=== PATIENT | male | born 1975 ===

== ENCOUNTER 2017-01-07 12:46 | Inpatient (IN) | payer OTHER ==
[2017-01-07] MEDS ORDERED: PROCHLORPERAZINE INJ 5 MG/ML 2 ML VIAL IV PRN (14:22)
[2017-01-07] MEDS ORDERED: Acetaminophen TAB* 325 MG PO PRN (14:22)
[2017-01-07] MEDS ORDERED: Morphine INJ* 2 MG/ML 1 ML SYRINGE IV PRN (14:22)
[2017-01-07] MEDS ORDERED: Nitroglycerin TAB 0.4 MG* 0.4 MG TAB SL PRN (14:23)
[2017-01-07 14:43] LABS: Hematocrit 48 % (42-52); Hemoglobin 16.1 g/dl (14.0-18.0); Mean Corpuscular HGB Conc 34 g/dl (31-36); Mean Corpuscular Hemoglobin 31 pg (27-31); Mean Corpuscular Volume 92 fL (80-94); Mean Platelet Volume 10 um3 (7.4-10.4); Red Blood Count 5.22 10^6/ul (4.0-5.4); Red Cell Distribution Width 13 % (10.5-15); White Blood Count 9.2 10^3/ul (3.5-10.8)
[2017-01-07] MEDS ORDERED: Enoxaparin(*) 40 MG/0.4 ML SYR SUBCUT SCH (15:00)
[2017-01-07 15:19] LABS: Albumin 4.2 g/dL (3.2-5.2); BUN/Creatinine Ratio 14.3 (8-20); Calcium 9.4 mg/dL (8.6-10.3); EGFR African American 128.9 (>60); EGFR Non-African American 100.2 (>60); Globulin 3.1 g/dL (2-4); Potassium 4.1 mmol/L (3.5-5.0); Total Protein 7.3 g/dL (6.4-8.9)
[2017-01-07] MEDS ORDERED: Enoxaparin(*) 80 MG/0.8 ML SYR SUBCUT ONE (15:32)
[2017-01-07] MEDS ORDERED: Clopidogrel TAB* 300 MG PO ONE (15:33)
--- NOTE | 2017-01-07 15:49 | PN ---
Hospitalist Progress Note HOSPITALIST ADDENDUM Patient remains comfortable, chest pain free, with no complaints. Troponin went up to 0.54. A/P: ACS - Will transfer to ICU. - D/w Cardiology - continue Aspirin, load with Plavix, add Lovenox, metoprolol, and atorvastatin. - Plan for cardiac cath in AM. - Patient updated at bedside and in agreement.
[2017-01-07] MEDS: Metoprolol Tartrate TAB* 25 MG PO SCH ×2 (15:51→21:15)
[2017-01-07] MEDS: Atorvastatin* 80 MG TAB PO SCH (15:51)
[2017-01-07 16:33] LABS: Magnesium 2.2 mg/dL (1.9-2.7)
--- NOTE | 2017-01-07 22:32 | HP ---
CC: Dr. Moya * HISTORY AND PHYSICAL: DATE OF ADMISSION: 01/07/17 TIME OF EVALUATION: 2 p.m. PRIMARY CARE PROVIDER: Dr. Moya. CHIEF COMPLAINT: Chest pain. HISTORY OF PRESENT ILLNESS: Mr. West is a 41-year-old male with a past medical history of tobacco abuse, who presented to the emergency room at [facility] with complaints of chest pain. 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 He states that he worked for an hour and a hour and a half period of vigorous physical activity and he stopped it and a few minutes later, he started to have chest pain that he describes as diffuse chest pain going from one shoulder to the other, burning in nature, 8/10 intensity. He went to his truck, sat, left the air conditioner on, but he states he was sweating profusely and the pain was not getting better , so he decided to go to the emergency room at [facility] [facility]. He received an aspirin and Toradol for pain with no relief and later on, he received nitroglycerin and he felt like the pain almost disappeared after that. He states the pain was not associated with palpitations, shortness of breath, cough, nausea, or vomiting. He is very active. 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 At [facility], his EKG showed no acute ischemic changes, but his first troponin is slightly elevated at 0.024 (limit 0.02). His minimally elevated troponin, the nature of his pain and the fact that it improved with nitroglycerin was concerning, so we were contacted for transfer as it was felt the patient would need further cardiac workup. The patient has been a smoker, a pack a day, since his early 20s. He states that when he goes for regular appointments with his PCP, they usually tell him that his blood pressure is elevated, but he states that a treatment was never recommended. He states that in the past he had high cholesterol and was on medication, but then later on, this was discontinued and he is not aware of his cholesterol levels at this point. Since , the patient has made multiple car trips to [place], [address], but he denies any leg swelling or leg pain. PAST MEDICAL HISTORY: 1. Possible hypertension and hyperlipidemia as described above. 2. Tobacco abuse. PAST SURGICAL HISTORY: Status post lumbar spine diskectomy for herniated disk 7 years ago. MEDICATION LIST: None. ALLERGIES: No allergies to medication, only to BEE VENOM (the patient experienced facial swelling). FAMILY HISTORY: The patient's father has a history of hypertension. He states the paternal grandfather in his 50s of heart disease, but he thinks it was related to rheumatic fever. As far as he knows, he has no family history of coronary artery disease. SOCIAL HISTORY: The patient is a smoker, 1 pack a day, since his early 20s. He drinks 1 to 2 doses of rum a week, last drink was last night. He denies any drug use. 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 Surrogate decision maker is the patient's father, Venkat West, phone number is [phone]. REVIEW OF SYSTEMS: A 14-point review of systems was performed and all the pertinent negative and positive findings are in the HPI. PHYSICAL EXAMINATION GENERAL: The patient is a pleasant middle-aged male, sitting up in bed, in no acute distress. VITAL SIGNS: Temperature is 97.8, heart rate is 63, respiratory rate is 16, oxygen saturation is 100% on room air, blood pressure is 156/98. HEENT: Pupils are equal. Moist mucous membranes. CHEST: Breath sounds present bilaterally with no added sounds. CVS: Normal S1, S2. Regular rate and rhythm. ABDOMEN: Soft, nontender, nondistended. Bowel sounds are present. EXTREMITIES: No edema. No calf tenderness. NEUROLOGIC: He is alert, awake, oriented x3. Able to move all 4 extremities. DIAGNOSTIC STUDIES/LAB DATA: At [facility], the patient had a chemistry that showed a sodium of 138, potassium of 4.0, chloride of 101, bicarb of 28, anion gap of 13, BUN of 11, creatinine of 1.0, glucose of 110, calcium of 9.2, magnesium 2. Total bilirubin 1.1, AST 25, ALT 35, alk phos 86. CPK was slightly elevated at 232 (upper limits 223). Troponin was 0.024. INR was 1.05. CBC showed a WBC of 7.2, hemoglobin of 16.4, hematocrit of 48, platelets of 238,000 with 64% neutrophils. Chest x-ray was reviewed, image CD sent and it shows no acute cardiopulmonary disease. The official report from [facility] is that the lung tan appear clear. The cardiac silhouette is within normal limits. There is no acute disease seen. EKG done at [facility] on 01/07/17 at 11:07 a.m. showed sinus rhythm with no ST-T changes. A repeat EKG was done at [facility] at 2:21 p.m. and it showed sinus rhythm at 64 beats per minute with flat T's in III and aVF, but no ST-T changes, no ST elevations. ASSESSMENT AND PLAN: Mr. West is a 41-year-old male with a past medical history of tobacco abuse, possible history of hypertension, hyperlipidemia that presented to [facility] with episode of chest pain after significant physical exertion associated with diaphoresis and relieved by nitroglycerin. 1. Chest pain, rule out acute coronary syndrome. The patient will be admitted as observation to the telemetry floor and he is going to have serial troponins. If acute coronary syndrome is ruled out, we are going to pursue an exercise Myoview stress test. The patient does have risk factors with his tobacco abuse. I am going to check his lipid profile as he reports taking cholesterol medication years ago. We are also going to monitor his blood pressure. He already received as aspirin today. We are going to continue that. He is chest pain free at this time, so I do not believe anticoagulation or beta- blockers are indicated as he is already bradycardic at this point, but if he has recurrent episodes of chest pain or if his troponin trends up, we will start anticoagulation. I will check a D-dimer level, but I believe the probability of pulmonary embolism is very low. The patient did have frequent trips to [place], but no other symptoms and the description of his chest pain does suggest a possible cardiac etiology. If acute coronary syndrome is ruled out and stress test is negative, consideration could be given to work him up for a pulmonary embolism, especially if his D-dimer is positive. 2. DVT prophylaxis: The patient has a score of 2 on the DVT Prophylaxis Risk Assessment Guide and he will be started on Lovenox. 3. Code status is full. TIME SPENT: Approximately 50 minutes were spent with the patient interview, medical records review, physical examination to complete the admission, more than half of this time spent [id number] with the patient in coordination of care. [id number]/[facility] #: [id number] [facility]ENTER[facility]
[2017-01-08] MEDS ORDERED: Enoxaparin(*) 150 MG/ML 1 ML SYRINGE SUBCUT SCH (03:00)
[2017-01-08 05:30] LABS: HDL Cholesterol 23.3 mg/dL
[2017-01-08 05:38] LABS: Troponin I 5.77 ng/mL (<0.04)
[2017-01-08] MEDS ORDERED: Nicotine Inhaler* 10 MG AMP INH PRN (07:54)
[2017-01-08] MEDS ORDERED: Mouth Piece, Nicotine* 1 EACH CARTRIDGE INH PRN (07:54)
[2017-01-08] MEDS ORDERED: Aspirin EC TAB* 325 MG PO SCH (09:00)
[2017-01-08] MEDS: Metoprolol Tartrate TAB* 25 MG PO SCH ×2 (10:42→21:30)
[2017-01-08] MEDS ORDERED: NS 0.9% 1000 ML* 1,000 ML IV SCH ×2 (10:45→13:45)
[2017-01-08] MEDS ORDERED: Diazepam TAB(*) 5 MG ONE (11:40)
[2017-01-08] MEDS ORDERED: Iohexol 350 (CONTRAST) 200 ML MDV IV ONE (11:45)
[2017-01-08] MEDS ORDERED: Lidocaine 1% INJ* 10 MG/ML 30 ML SDV ONE (11:45)
[2017-01-08] MEDS ORDERED: Midazolam* 1 MG/ML 5 ML VIAL (5 MG) ONE (11:45)
[2017-01-08] MEDS ORDERED: fentaNYL* 50 MCG/ML 2 ML VIAL (100 MCG VIAL) ONE ×2 (11:45→13:19)
[2017-01-08] MEDS ORDERED: Heparin 2 UNITS/ML IVPREMIX* 2,000 ML IV ONE (11:45)
[2017-01-08] MEDS ORDERED: Heparin(*) 1000 UNIT/ML 10 ML VIAL CATH LAB IV ONE (11:46)
[2017-01-08] MEDS ORDERED: VERAPAMIL 2.5 MG/ML 4 ML VIAL ONE (11:46)
[2017-01-08] MEDS ORDERED: nitroGLYCERIN DRIP* 250 ML ONE (11:46)
--- NOTE | 2017-01-08 11:49 | CONS ---
CC: Dr. Moya; Dr. Chong Peters * INTERVENTIONAL CARDIOLOGY CONSULT: DATE OF CONSULT: 01/08/17 PRIMARY CARE PHYSICIAN: Dr. Moya, [place]. HISTORY OF PRESENT ILLNESS: A 41-year-old male with non-ST elevation infarct/ troponin-positive ACS. He has a history of apparently borderline hypertension as well as hyperlipidemia. He has been on no medications most recently. While pounding fence post, he developed chest discomfort, presented at [place] where EKG showed only minor inferior and anterolateral ST depression, troponin was elevated at 0.024. Chest x- ray there, CBC and BMP were normal. He was transferred here. He has remained pain free on medical therapy. PAST MEDICAL HISTORY: History of hypertension, history of hyperlipidemia, tobacco use. MEDICATIONS: Prehospital medications: None. Current meds: 1. Lipitor 80. 2. Subcu Lovenox. 3. Metoprolol tartrate 25 b.i.d. 4. Nicotine inhaler. ALLERGIES: To BEES. FAMILY HISTORY: Negative for premature coronary disease. 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 REVIEW OF SYSTEMS: General: No weight loss, no fever. CAPTURE MANAGER: No history of TIA or CVA. GI: No history of peptic ulcer disease or bleeding. Circulatory: No history of claudication. Remainder all negative. PHYSICAL EXAM: He is articulate, looks well. BP 117/73, heart rate in the 50s , sinus rhythm. Lungs: Clear to percussion and auscultation. Neck: JVP and carotids are normal. HEENT: No xanthelasma, scleral injection, or jaundice. EOMs grossly intact. Cardiac Exam: [place] and RV not palpable, split first sound , normal split second sound. No gallop, no murmur, no rub. Abdomen is benign without bruit. Radial, femoral, and pedal pulses are palpable. He has no abdominal bruit. Periphery without cyanosis, clubbing, or edema. Skin: Warm and perfused. Psych: He is oriented and appropriate. DIAGNOSTIC STUDIES/LAB DATA: EKG here shows very slight nonspecific ST depression. CBC and BMP are normal. Cholesterol is high at 250 with triglycerides 143, LDL 198, HDL 23, on no statin. Troponin has peaked at 6.52. IMPRESSION AND PLAN: Non-ST elevation infarct. We discussed catheterization, possible need for culprit lesion revascularization. He does heavy physical work , has very high exercise expectations. We discussed the procedure, risks, the need for prolonged dual-antiplatelet therapy with stenting. All questions were answered. [id number]/[facility] #: [id number] [place]
[2017-01-08] MEDS ORDERED: Ticagrelor* 90 MG TAB PO ONE (12:43)
--- NOTE | 2017-01-08 13:09 | PN ---
Subjective Date of Service: 01/08/17 Interval History: HOSPITALIST PROGRESS NOTE Patient seen and examined at bedside. He feels well today. No further episodes of chest pain. Had some fluttering on his chest when his monitor alarmed with Vtach, but no other symptoms. Family History: Unchanged from Admission Social History: Unchanged from Admission Past Medical History: Unchanged from Admission Objective Active Medications: Acetaminophen (Tylenol Tab*) 650 mg PO Q6H PRN PRN Reason: pain/fever Aspirin (Ecotrin Ec Tab*) 81 mg PO DAILY [facility] Atorvastatin Calcium (Lipitor*) 80 mg PO 1600 [facility] Last Admin: 01/07/17 15:51 Dose: 80 mg Device (Nicotine Mouth Piece*) 1 each INH .USE WITH NICOTROL PRN PRN Reason: CRAVING Sodium Chloride (Ns 0.9% 1000 Ml*) 1,000 mls @ 100 mls/hr IV .per rate [facility] Last Admin: 01/08/17 10:42 Dose: 100 mls/hr Metoprolol Tartrate (Lopressor Tab*) 25 mg PO BID [facility] Last Admin: 01/08/17 10:42 Dose: 25 mg Morphine Sulfate (Morphine Inj (Syringe)*) 2 mg IV Q4H PRN PRN Reason: SEVERE PAIN Nicotine (Nicotine Inhaler*) 10 mg INH Q2H PRN PRN Reason: CRAVING Prochlorperazine Edisylate (Compazine Inj*) 5 mg IV Q6H PRN PRN Reason: NAUSEA/VOMITING Vital Signs 01/08/17 01/08/17 09:00 11:27 Temperature 98.2 F Pulse Rate 53 Respiratory 17 Rate Blood Pressure 117/73 (mmHg) O2 Sat by Pulse 94 Oximetry Oxygen Devices in Use Now: None Appearance: Pleasant gentleman lying in bed in NAD. Eyes: No Scleral Icterus Ears/Nose/Mouth/Throat: Mucous Membranes Moist Neck: Trachea Midline Respiratory: Symmetrical Chest Expansion and Respiratory Effort, Clear to Auscultation Cardiovascular: RRR - Normal S1 and S2 Extremities: No Edema Neurological: Alert and Oriented x 3, NL Muscle Strength and Tone Lines/Tubes/Other Access: Clean, Dry and Intact Peripheral IV Result Diagrams: 01/07/17 14:33 01/07/17 14:33 Assess/Plan/Problems-Billing Assessment: Mr. West is a 41yo M with PMH of tobacco abuse, untreated HLD and HTN, who was transferred from [facility] with c/o CP, found to have NSTEMI. - Patient Problems (1) NSTEMI (non-ST elevated myocardial infarction) Comment: - Continue medical management with Aspirin, Lovenox, Metoprolol, Atorvastatin. - Cardiology consult for possible cardiac cath today. (2) V-tach Comment: - Non sustained and asymptomatic. - Continue Metoprolol. (3) HTN (hypertension) Comment: - Controlled with Metoprolol. (4) HLD (hyperlipidemia) Comment: - Continue Atorvastatin. (5) Tobacco abuse Comment: - Tobacco cessation education provided. - Patient states he does not feel he's withdrawing, but will order Nicotine inhaler PRN. (6) DVT prophylaxis Comment: - Lovenox. (7) Full code status
[2017-01-08] MEDS ORDERED: Nitroglycerin TAB 0.4 MG* 0.4 MG TAB SL PRN (13:32)
[2017-01-08] MEDS ORDERED: Adenosine* 3 MG/ML VIAL ONE (13:33)
[2017-01-08] MEDS ORDERED: oxyCODONE/Acetamin 5/325 MG* TAB PO PRN (13:35)
[2017-01-08] MEDS ORDERED: Atropine SYRINGE* 0.1 MG/ML 10 ML SYRINGE (1 MG) ONE (13:44)
[2017-01-08] MEDS: Atorvastatin* 80 MG TAB PO SCH (17:36)
[2017-01-08] MEDS: Ticagrelor* 90 MG TAB PO SCH (20:40)
[2017-01-08] MEDS ORDERED: Metoprolol Tartrate TAB* 25 MG PO SCH (23:53)
[2017-01-09] MEDS: Metoprolol Tartrate TAB* 25 MG PO SCH ×2 (01:12→08:50)
[2017-01-09 06:08] LABS: BUN/Creatinine Ratio 17.6 (8-20); Calcium 8.9 mg/dL (8.6-10.3); EGFR African American 149.2 (>60)
[2017-01-09] MEDS: Ticagrelor* 90 MG TAB PO SCH (08:51)
[2017-01-09] MEDS ORDERED: Aspirin EC Low Dose* 81 MG TAB.EC ONE (08:53)
--- NOTE | 2017-01-09 08:55 | CATH ---
CC: Dr. Moya; Chong Peters MD STENT REPORT: DATE OF PROCEDURE: 01/08/17 PRIMARY CARE PHYSICIAN: Dr. Moya at [place]. PROCEDURE: Right radial artery access bilateral selective coronary cine angiography, left heart cat heterization, left ventriculography, FFR evaluation, LAD, stent placement in LAD 2.75 x 24 Synergy d rug-eluting stent, stent placement, culprit diagonal branch, 2.5 x 16 Synergy drug-eluting stent. HISTORY: A 41-year-old male with [id number] infarct, peak troponin of 6.52. PROCEDURE ACCESS: Right radial artery. SHEATH: 6F slender. MEDICATIONS: 1. Subcu lidocaine. 2. IV Versed. 3. IV Fentanyl. 4. Heparin 3000 units. 5. Nitroglycerin 300 mcg. 6. Verapamil 3 mg IA. 7. Brilinta 180 mg p.o. 8. Loading dose heparin 4000 units, 2000 units IV for FFR evaluation of the LAD. 9. IV nitroglycerin 200 mcg was given followed by measurement of FFR using 100, and 100 mcg of IC a denosine bolus. DIAGNOSTIC CATHETERS: 5-F TIG4, 5-F pigtail. Guiding catheter 6-FL BU 3.5. The common pressure wi re was used for FFR, and was used to deploy the LAD stents as well as the diagonal stents. After FF R evaluation of the LAD, a 2.75 x 24 Synergy drug-eluting stent was deployed, 16 atmospheres, 20 sec onds, post dilated with a 2.75 x 20 mm balloon to 18 atmospheres with two overlapping inflations. A pressure wire was then directed into the diagonal where a 2.5 x 16 Synergy drug-eluting stent was d eployed 11 atmospheres 20 seconds, then post dilated with a 2.5 x 15 noncompliant balloon 12 and the n 18 atmospheres. HEMODYNAMICS: Initial BP 130/77, LV 108/6-12, no aortic valve gradient on pull back. FFR proximal LAD stenosis with IC adenosine 100 mcg x2 was 0.7, and 0.7. ANGIOGRAPHY: RCA: The RCA is large, dominant, with a large PDA followed by two moderate posterolat erals. The RCA has scattered luminal irregularity and plaquing, is heavily calcified. It has no fl ow-limiting stenoses. Left Main: The left main has some reverse taper, no significant stenosis. LAD: The LAD is moderate, extends to the apex. It has a proximal large first diagonal which has a lucent eccentric 90% stenosis with probable thrombus. The LAD has a tubular 50 to 60% stenosis stra ddling the origin of the first septal landfill attendant. Circumflex: It is moderate, not dominant. There is a very small first marginal, which trifurcates almost immediately, has luminal irregularity, but no significant stenosis. The circumflex then supp lies a moderate to marginal, which has diffuse luminal irregularity with some ectasia, distally supp lies bifurcated posterolateral branch. The circumflex has no focal significant stenosis. After FFR guided stenting of the LAD and angiographically guided stenting of the diagonal, there is no residual stenosis; there is normal flow. LV gram. There is distal anterolateral hypokinesis which improves post PVC, normal LVEF of 55%. CONCLUSION: 1. Extensive coronary atherosclerosis with heavy plaque burden in a patient with hyper lipidemia, tobacco use. Culprit diagonal stenosis with significant LAD stenosis by FFR. Excellent angiographic result with drug-eluting stent placement LAD and diagonal. 2. Normal LVEF with mild regional wall motion abnormality, likely mostly due to stunning. 3. Left-sided hemodynamics. 4. Successful right radial artery access. [id number]/[facility] #: [id number]
[2017-01-09] MEDS ORDERED: Aspirin EC TAB* 325 MG PO SCH (09:00)
[2017-01-09] MEDS ORDERED: Aspirin EC Low Dose* 81 MG TAB.EC PO SCH (09:00)
[2017-01-09] MEDS ORDERED: Lisinopril TAB* 5 MG PO SCH (11:00)
[2017-01-09] MEDS ORDERED: CMC:Prasugrel (NF) 10 MG PO SCH (11:00)
[2017-01-09 12:44] VITALS: BP 128/77
--- NOTE | 2017-01-10 12:16 | DS ---
CC: Dr. Chong Peters * DISCHARGE SUMMARY: DATE OF ADMISSION: 01/07/17 DATE OF DISCHARGE: 01/09/17 ADMISSION DIAGNOSIS: Chest pain. DISCHARGE DIAGNOSES: 1. Non-ST elevation myocardial infarction. 2. Ventricular tachycardia. 3. Hypertension. 4. Hyperlipidemia. 5. Tobacco abuse. HOSPITAL COURSE: The patient is a 41-year-old gentleman who presented to [facility] with chest pain. Please see H and P for further details. The patient did eventually rule in for non-ST elevation myocardial infarction. He did have an episode of V-tach. He is a smoker and was found to be hypertensive and have high cholesterol as well. The patient was seen in consult by Cardiology. The patient did have a cardiac catheterization on . The patient ended-up having a drug-eluting stent placement in both the LAD and diagonal. The patient did well postcardiac cath. He will find a primary care physician. He will follow up with Dr. Peters as an outpatient. He was placed on new medications as outlined below. The patient will make every attempt to stop smoking and was given new prescription for nicotine inhalers. STUDIES DONE WHILE IN THE HOSPITAL: 1. Cardiac catheterization, 01/08/17. Impression: Extensive coronary atherosclerosis with heavy plaque burden in patient with hyperlipidemia and tobacco abuse. Culprit diagonal stenosis with significant LAD stenosis by FFR. Excellent angiographic result with drug-eluting stent placement in LAD and diagonal. 2. Normal left ventricular ejection fraction with mild regional wall motion abnormality likely mostly due to stunning. 3. Left-sided hemodynamics. 4. Successful right radial access. PHYSICAL EXAMINATION ON THE DATE OF DISCHARGE: General: A well-developed, well - nourished gentleman lying in bed, in no acute distress. Vital Signs: Temperature 97.7 degrees, heart rate 57 beats per minute, blood pressure 128/57, respiratory rate 18 breaths per minute. HEENT: Normocephalic and atraumatic. Pupils are equal, round, and reactive to light. Moist mucous membranes. Neck: Supple. No JVD, bruits, palpable thyroid, or lymphadenopathy. Chest: Clear to auscultation and percussion bilaterally. Cardiovascular Exam: S1 and S2 appreciated. Regular, rate, and rhythm. No murmurs, gallops, or rubs. Abdominal exam, positive bowel sounds in all 4 quadrants, soft, nontender, and nondistended with no hepatosplenomegaly. Extremities: No cyanosis, clubbing, or edema. +2 pulses bilaterally. Neuro: Alert and oriented x3. Moves all extremities. Skin: No rashes or abnormalities. DISCHARGE MEDICATIONS: 1. Effient 10 mg daily. 2. Nitroglycerin 0.4 mg sublingual q.4 minutes as needed. 3. Nicotine inhaler 2 mg every 2 hours as needed. 4. Metoprolol tartrate 12.5 mg twice daily. 5. Lisinopril 5 mg daily. 6. Lipitor 80 mg daily. 7. Aspirin 81 mg daily. DISCHARGE PLAN: The patient will be discharged home. He will find a PCP and follow up with him in 1 to 2 weeks. He will follow up with Dr. Peters also ____ __. The patient to return if any of these symptoms recur. TIME SPENT: Over 45 minutes was spent on this discharge, more than 25 minutes of which was spent in direct [id number] contact with the patient evaluation, physical exam, counselling, and coordination of care. [id number]/[facility] #: [id number] [facility]ITALJust[facility]
== END 2017-01-09 12:43 | disposition home or self-care (01) | DRG 247 ==
LOC: MEDTELE 13:54 → ICU 16:03 → OBSVTOIN 01-08 14:39
PROVIDERS: ADMIT Internal Medicine; ATTEND Internal Medicine
PROC: 4A033BC Measurement of Arterial Pressure, Coronary, Percutaneous Approach (ICD-10-PCS; 2017-01-08)
PROC: B2111ZZ Fluoroscopy of Multiple Coronary Arteries using Low Osmolar Contrast (ICD-10-PCS; 2017-01-08)
PROC: 4A023N7 Measurement of Cardiac Sampling and Pressure, Left Heart, Percutaneous Approach (ICD-10-PCS; 2017-01-08)
PROC: B2151ZZ Fluoroscopy of Left Heart using Low Osmolar Contrast (ICD-10-PCS; 2017-01-08)
PROC: 027135Z Dilation of Coronary Artery, Two Arteries with Two Drug-eluting Intraluminal Devices, Percutaneous Approach (ICD-10-PCS; principal; 2017-01-08 12:45)
DX: I21.4 Non-ST elevation (NSTEMI) myocardial infarction (principal); I47.2 Ventricular tachycardia; E78.5 Hyperlipidemia, unspecified; F17.210 Nicotine dependence, cigarettes, uncomplicated; I10 Essential (primary) hypertension; R00.1 Bradycardia, unspecified; I25.10 Atherosclerotic heart disease of native coronary artery without angina pectoris; E78.00 Pure hypercholesterolemia, unspecified; Z79.82 Long term (current) use of aspirin; Z91.030 Bee allergy status; Z82.49 Family history of ischemic heart disease and other diseases of the circulatory system; Z79.02 Long term (current) use of antithrombotics/antiplatelets
CPT/HCPCS: 36415; 80048; 80053; 80061; 82553; 83735; 84484; 85025; 85379; 87641; 93005; 93458; A9270-GY; C1725; C1876; C1887; C9600-LD; G0378; J0153; J0461; J1644; J1650; J2001; J2250; J3010